=== PATIENT | male | born 1950 | race Caucasian/White ===

== ENCOUNTER 2020-04-06 10:04 | Outpatient (REF) | payer MEDICARE, SELFPAY | END 2020-04-06 10:05 | disposition home or self-care (01) | LOC: HO.LAB 10:04 | PROVIDERS: Visit Provider Internal Medicine | DX: Z20.822 Contact with and (suspected) exposure to COVID-19 (principal) | CPT/HCPCS: 36415; C9803; U0003 ==

== ENCOUNTER → 2020-05-09 12:54 | Outpatient (BNV) | payer MEDICARE, SELFPAY | PROVIDERS: Visit Provider Internal Medicine Medical Oncology | DX: C64.1 Malignant neoplasm of right kidney, except renal pelvis (principal) | CPT/HCPCS: 99213; 99214 ==

== ENCOUNTER 2020-06-03 13:28 | Outpatient (REF) | payer MEDICARE, SELFPAY ==
--- NOTE | ~2020-06-03 | CT_ITS ---
EXAMINATION: CT CHEST with IV contrast and CT abdomen with and without IV contrast CLINICAL INFORMATION: Renal cell cancer COMPARISON: Previous CT of the chest, abdomen and pelvis November 2019 and MRI of the abdomen May 2019 TECHNIQUE: Axial images through the chest following IV contrast and axial images of the abdomen with and without IV contrast and following oral contrast. Sagittal and coronal reconstructions on the technologist workstation were performed. Patient dose 109+3 4 2 mg/cm. This CT examination was performed using dose optimization techniques as appropriate, variously including the following: *Automated exposure control *Adjustment of mA and/or kV according to patient size (this includes techniques or standardized protocols for targeted exams where dose is matched to indication/reason for exam; i.e. extremities or head) *Use of iterative reconstruction technique FINDINGS: Chest: There are also pleural lobe blebs of the right lung apex. The lungs are otherwise clear. No pulmonary nodule is seen. There is coronary artery calcification. The mediastinum is otherwise normal. There is no pleural effusion or pleural thickening. No chest wall mass or enlarged axillary lymph nodes are seen. Abdomen and pelvis: The liver is low in attenuation suggestive of fatty infiltration. No focal liver lesion is seen. The gallbladder is normal. There is no biliary duct dilatation. The spleen is normal. The pancreas is normal. The adrenal glands are normal. The right kidney is been removed. The left kidney is normal appearing. Small and large bowel is unremarkable. The appendix is unremarkable. The stomach is unremarkable. No ascites or adenopathy is seen. No hernia is seen. There is evidence of atherosclerotic disease. There is mild dilatation of the distal abdominal aorta measuring 2.3 x 2.5 cm in AP and transverse dimension. There are old mild T3 and T4 vertebral body compression fractures severe T6 vertebral body compression fracture that appears unchanged. There are degenerative changes of the spine. CT/CT abdomen pelvis wo/w con IMPRESSION: No evidence of metastatic disease. Coronary artery calcification. Mild dilatation of the distal abdominal aorta. Stable old thoracic vertebral body compression fractures.
== END 2020-06-03 13:29 | disposition home or self-care (01) ==
LOC: HO.CT 13:28
PROVIDERS: Visit Provider Internal Medicine Medical Oncology
DX: C64.9 Malignant neoplasm of unspecified kidney, except renal pelvis (principal)
CPT/HCPCS: 71260; 74178; Q9967

== ENCOUNTER → 2020-06-14 09:49 | Outpatient (BNVA) | payer MEDICARE, SELFPAY | PROVIDERS: PCP Internal Medicine; Visit Provider Nurse Practitioner | DX: K59.04 Chronic idiopathic constipation (principal); K21.9 Gastro-esophageal reflux disease without esophagitis; R13.10 Dysphagia, unspecified; M18.0 Bilateral primary osteoarthritis of first carpometacarpal joints; Z79.899 Other long term (current) drug therapy; Z87.891 Personal history of nicotine dependence | CPT/HCPCS: Q3014 ==

== ENCOUNTER 2020-11-18 10:34 | Outpatient (REF) | payer MEDICARE, SELFPAY ==
--- NOTE | ~2020-11-18 | MR_ITS ---
MRI OF THE BRAIN WITH AND WITHOUT IV CONTRAST INDICATION: Renal cell carcinoma. Headaches. History of falls. COMPARISON: Brain MRI 07/29/2014. Head CT 05/22/2019. TECHNIQUE: Multiplanar multisequence MR imaging of the brain was obtained without and following the administration of 7.5 mL of Gadavist without complication. FINDINGS: There is no pathologic intracranial enhancement. 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 Progressive T2 signal changes within the supratentorial white matter, possibly advanced chronic microangiopathy but nonspecific. Chronic cortical/subcortical infarcts within the frontal lobes bilaterally. Progressive global cerebral volume loss. There is no hydrocephalus, extra-axial surface collection, or herniation. The major flow voids at the skull base are preserved. There is no acute infarct on diffusion-weighted imaging. There is no intracranial hemorrhage on the gradient recalled echo acquisition. Interval development of chronic siderosis along multiple parasagittal right frontoparietal gyral crests. The midline structures are normal. The cerebellar tonsils are normally positioned. The craniocervical junction is normal. Osseous marrow signal intensity is homogenous. The visualized soft tissues are unremarkable. Mild mucosal thickening within the maxillary sinuses bilaterally. Bilateral lens extractions. Small bilateral mastoid effusions. MR/MR head/brain wo/w con IMPRESSION: - No acute intracranial findings. No enhancing lesions. 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 Progressive T2 signal changes within the supratentorial white matter, possibly advanced chronic microangiopathy but nonspecific. Chronic cortical/subcortical infarcts within the frontal lobes bilaterally. Progressive global cerebral volume loss. - Interval development of chronic siderosis along multiple parasagittal right frontoparietal gyral crests.
== END 2020-11-18 10:35 | disposition home or self-care (01) ==
LOC: HO.MRI 10:34
PROVIDERS: Visit Provider Internal Medicine Medical Oncology
DX: R51.9 Headache, unspecified (principal)
CPT/HCPCS: 70553; A9585

== ENCOUNTER 2021-02-08 13:12 | Emergency (ER) | payer MEDICARE, SELFPAY ==
--- NOTE | ~2021-02-08 | CT_ITS ---
EXAMINATION: CT HEAD WITHOUT CONTRAST CLINICAL INFORMATION: Fall, trauma, pain COMPARISON: MR brain without and with contrast 11/18/2020, CT brain without and with contrast 05/22/2019 TECHNIQUE: Contiguous axial imaging was performed from the skull base to vertex without intravenous administration of contrast. Additional 2-D coronal and sagittal reformatted images are generated on the CT workstation and uploaded to PACS. This CT examination was performed using dose optimization techniques as appropriate, variously including the following: *Automated exposure control *Adjustment of mA and/or kV according to patient size (this includes techniques or standardized protocols for targeted exams where dose is matched to indication/reason for exam; i.e. extremities or head) *Use of iterative reconstruction technique DLP: 744 mGy-cm FINDINGS: There is no intracranial hemorrhage, hematoma, or extra-axial fluid collection. The ventricles are normal in size. There is no hydrocephalus, edema, or mass effect. There is accentuation of the cortical sulci and fissures and cisterns representing some atrophic changes. Again, periventricular white matter gliosis is present consistent with chronic small vessel ischemic changes. There are chronic infarcts again seen in the left and right cerebellar hemispheres. There is no visible acute territorial infarct or mass lesion. The calvarium appears intact. There is no pneumocephalus or orbital emphysema. There are no air-fluid levels in the visualized sinuses or middle ears or mastoids. CT/CT head/brain wo con IMPRESSION: No acute intracranial abnormality.
[2021-02-08 13:25] VITALS: BP 151/94; BP 165/110; PULSE 104; PULSE 110; RESP 18; TEMP 37.1; O2SAT 95; O2SAT 96; BMI 22.3
--- NOTE | 2021-02-08 13:39 | ECG_ITS ---
Test Reason : FALL Blood Pressure : / mmHG Vent. Rate : 099 BPM Atrial Rate : 099 BPM P-R Int : 200 ms QRS Dur : 082 ms QT Int : 344 ms P-R-T Axes : 038 021 070 degrees QTc Int : 441 ms Normal sinus rhythm Normal ECG When compared with ECG of 19-DEC-2016 21:40, Vent. rate has increased BY 35 BPM Referred By: Adonis Saini Electronically Signed By:SHARDA OLIVARES
--- NOTE | 2021-02-08 13:41 | ED.FALL ---
HPI - Fall General Chief Complaint: Fall Stated Complaint: WEAKNESS W/FALL,HEAD LAC EYEBROW,+THINNERS/CONTROL Time Seen by Provider: 02/08/21 13:38 Source: patient, EMS and old records reviewed Mode of arrival: ambulatory Limitations: no limitations History of Present Illness HPI Narrative: 70-year-old male came in by ambulance for evaluation of a mechanical fall. Patient was walking to his apartment said his legs usually keep out and feels weak, causing him to fall, patient admitted to drinking 3 beers today, patient fell down landed on both knees and forehead causing laceration of the left eyebrow. no LOC before or after of the fall. Patient is taking Eliquis for noncardiac reason patient is aware and old records do not reflect the reason. Related Data Home Medications Medication Instructions Recorded Confirmed apixaban 5 mg tablet (Eliquis) 1 tab PO BID 05/09/20 11/08/20 calcitonin (salmon) 200 200 unit INTRANASAL DAILY 05/09/20 11/08/20 unit/actuation nasal spray cholecalciferol (vitamin D3) 25 1 cap PO DAILY 05/09/20 11/08/20 mcg (1,000 unit) capsule (Vitamin D3) meclizine 12.5 mg tablet 1 tab PO DAILY 05/09/20 11/08/20 omeprazole 20 mg capsule,delayed 1 cap PO DAILY 05/09/20 11/08/20 release rosuvastatin 20 mg tablet 1 tab PO DAILY 05/09/20 11/08/20 alendronate 70 mg tablet (Fosamax) 70 mg PO QWEEK 01/18/21 ciclopirox 8 % topical solution ml TOPICAL 01/18/21 diltiazem HCl 180 mg 180 mg PO DAILY 01/18/21 capsule,extended release 24 hr ipratropium 20 mcg-albuterol 100 1 puff INHALATION Q4H PRN 01/18/21 mcg/actuation mist for inhalation (Combivent Respimat) melatonin 5 mg tablet 5 mg PO BEDTIME PRN 01/18/21 tiotropium bromide 18 mcg capsule 1 cap INHALATION DAILY 01/18/21 with inhalation device (Spiriva with HandiHaler) Previous Rx's Medication Instructions Recorded sennosides 8.6 mg capsule (senna) 17.2 mg PO BEDTIME 30 Days #60 cap 11/11/20 Allergies Allergy/AdvReac Type Severity Reaction Status Date / Time aspirin Allergy Unknown upset Verified 01/18/21 14:47 stomach Review of Systems Review of Systems: All other systems are reviewed and are negative Constitutional: Reports as per HPI and Reports no additional constitutional complaints Eyes: Reports as per HPI and Reports no additional eye complaints Reports system reviewed and no additional complaints, except as documented Cardiovascular: Reports as per HPI and Reports no additional cardiovascular complaints Respiratory: Reports as per HPI and Reports no additional respiratory complaints Gastrointestinal: Reports as per HPI and Reports no additional gastrointestinal complaints Genitourinary: Reports no additional female genitourinary complaints Musculoskeletal: Reports no additional musculoskeletal complaints Skin/Breast: Reports system reviewed and no additional complaints, except as docu Psychiatric: Reports no additional psychiatric complaints Endocrine: Reports no additional endocrine complaints Hematologic/Lymphatic: Reports no additional hematologic/lymphatic complaints Allergic/Immunologic: Reports no additional allergic/immunologic complaints Reports system reviewed and no additional complaints, except as documented and Reports Abnormal speech present PMFSH Past Medical History Medical History Chronic idiopathic constipation GERD (gastroesophageal reflux disease) Renal cell carcinoma Surgical History History of esophagogastroduodenoscopy (EGD) Hx of colonoscopy Hx of kidney removal Family History Family History Father Hx of back injury Mother History of asthma Brother History of memory loss Social History Social History Housing: Apartment Alcohol intake: current Alcohol intake frequency: holidays/special occasions only Alcohol type: beer Patient Tobacco Use Status: Former Tobacco user e-Cigarette/Vaping Use: Never Used Second Hand Smoke Exposure: No Advance Directives: Yes Advance Directives Information Provided: No Advance Directives on File: No service: No Current occupational status: retired Cognitive needs: No Hearing needs: No Vision needs: No Physical Exam Vital Signs: Vital Signs: Last Vital Signs Temp 98.8 F 02/08/21 13:25 Pulse 98 02/08/21 15:03 Resp 18 02/08/21 15:03 BP 146/93 H 02/08/21 15:03 Pulse Ox 95 02/08/21 15:03 BMI result Body Mass Index 22.3 vital signs have been reviewed as appeared to be correct. Blood pressure elevated. Heart rate normal. Respiration rate normal. Temperature normal. Oxygen saturation normal. Appearance: Alert. Oriented X3. No acute distress. GCS of 15 Head: Normal external exam. Normocephalic. Atraumatic. No Weathers signs noted. No raccoon eyes noted Eyes: PERRLA. EOMI. Conjunctiva and sclera normal. Eyelids normal. 3 cm ENT: TM's Normal. Pharynx normal. Uvula midline. Moist mucous membranes. No trismus noted. No drooling noted. No muffled voice noted. Neck: Normal inspection. Neck supple. FROM. No adenopathy. Thyroid Normal. No meningeal signs. No neck mass noted. CVS: Normal heart rate and rhythm. Heart sound normal. No murmurs noted. Pulses normal throughout. Respiratory: No respiratory distress. Painless inspiration. Breath sounds normal. No wheezes/rales/rhonchi noted. Chest nontender. No accessory muscle usage noted or decreased air movement noted. Abdomen: Soft and nontender. Bowel sounds normal in all 4 quadrants. No distention noted. No organomegaly noted. No visible injury noted. Back: No CVA tenderness. Full range of motion noted. Skin: Skin warm and dry. Normal skin color. Normal skin turgor. No rashes/lesions/lacerations noted. Extremities: No lower extremity edema. Extremities exhibit normal range of motion. Extremities nontender. Neuro: Oriented X 3. GCS of 15 Cranial nerve exam: II-XII are grossly intact No motor deficit. No sensory deficit. Reflexes normal. Course Course Course Narrative: assessment and plan. 70-year-old male sustained a mechanical fall on [facility], patient has normal neuro exam, GCS of 15, normal CT of the head, please refer to procedure note for laceration repair. Patient drinks 3 beers early today for patients over walking in steady gait. Procedures Laceration Laceration 1: Site: face ( Left eyebrow) Side (If applicable): left Description: linear Depth: simple, single layer Pre-repair: wound explored and irrigated extensively Skin layer closed with: other ( Dermabond) MDM - Fall Lab Data Attestation: I reviewed the patient's lab results. Result diagrams: 02/08/21 13:56 Labs: Lab Results 02/08/21 02/08/21 Range/Units 13:56 13:56 Sodium 131 L (135-145) mmol/L Potassium 4.4 (3.3-5.1) mmol/L Chloride 102 (96-108) mmol/L Carbon Dioxide 14 L (22-29) mmol/L Anion Gap 19 (12-20) BUN 23 H (9-16) mg/dL Creatinine 1.39 (0.5-1.4) mg/dL Estim Creat Clear Calc 52.2 Estimated GFR 51 Random Glucose 99 (60-115) mg/dL Calcium 9.3 (8.4-10.2) mg/dL Total Bilirubin 0.5 (0.0-1.0) mg/dL Direct Bilirubin < 0.2 (0.0-0.5) mg/dL AST 30 D (5-37) U/L ALT 21 (0-40) U/L Alkaline Phosphatase 48 (39-117) U/L Troponin I High Sens < 3.5 (<3.5-35.0) ng/L Total Protein 7.3 (6.5-8.0) g/dL Albumin 3.9 (3.5-5.0) g/dL Lipase 19 (8-78) U/L Imaging Data CT scan - head: Radiologist's impression: no acute pathology. ECG Data Attestation: I personally reviewed and interpreted this ECG as follows: Interpretation: Normal sinus rhythm at 99 beats per minute, normal intervals, no ST-T changes. Discharge Plan Discharge Clinical Impression: Facial laceration, Fall Patient Disposition: Home, Self-Care Instructions: Skin Adhesive Care (ED) Prescriptions: No Action senna 8.6 mg capsule 17.2 mg PO BEDTIME 30 Days Qty: 60 RF: 3 meclizine 12.5 mg tablet 1 tab PO DAILY RF: 0 calcitonin (salmon) 200 unit/actuation spray,non-aerosol 200 unit intranasal DAILY RF: 0 omeprazole 20 mg capsule,delayed release(DR/EC) 1 cap PO DAILY RF: 0 cholecalciferol (vitamin D3) [Vitamin D3] 25 mcg (1,000 unit) capsule 1 cap PO DAILY RF: 0 rosuvastatin 20 mg tablet 1 tab PO DAILY RF: 0 Eliquis 5 mg tablet 1 tab PO BID RF: 0 Combivent Respimat 20-100 mcg/actuation mist 1 puff inhalation Q4H PRNRF: 0 diltiazem HCl 180 mg capsule,extended release 24hr 180 mg PO DAILY RF: 0 alendronate [Fosamax] 70 mg tablet 70 mg PO QWEEK RF: 0 ciclopirox 8 % solution topical RF: 0 melatonin 5 mg tablet 5 mg PO BEDTIME PRNRF: 0 Spiriva with HandiHaler 18 mcg capsule, w/inhalation device 1 cap inhalation DAILY RF: 0 Referrals: José Vaughn MD [Primary Care Provider] - 2 days
[2021-02-08 14:24] LABS: Alanine Aminotransferase 21 U/L (0-40); Albumin Level 3.9 g/dL (3.5-5.0); Alkaline Phosphatase 48 U/L (39-117); Anion Gap 19 (12-20); Aspartate Amino Transferase 30 U/L (5-37); Bilirubin Direct < 0.2 mg/dL (0.0-0.5); Bilirubin Total 0.5 mg/dL (0.0-1.0); Blood Urea Nitrogen 23 mg/dL (9-16); Calcium 9.3 mg/dL (8.4-10.2); Carbon Dioxide 14 mmol/L (22-29); Chloride 102 mmol/L (96-108); Creatinine Clr Calc Pharmacy 52.2; Estimated Glomerular Filt Rate 51; Glucose Random 99 mg/dL (60-115); Lipase 19 U/L (8-78); Potassium 4.4 mmol/L (3.3-5.1); Sodium 131 mmol/L (135-145); Total Protein 7.3 g/dL (6.5-8.0); Troponin-I High Sensitivity < 3.5 ng/L (<3.5-35.0)
[2021-02-08 15:03] VITALS: BP 146/93; PULSE 98; RESP 18; O2SAT 95
[2021-02-08] MEDS: Diphth,Pertus(ACell),Tet Adult 0.5 ML SYRINGE IM (15:18)
== END 2021-02-08 16:14 | disposition home or self-care (01) ==
PROVIDERS: Emergency Provider Emergency Medicine; PCP Internal Medicine
DX: S01.112A Laceration without foreign body of left eyelid and periocular area, initial encounter (principal); G44.309 Post-traumatic headache, unspecified, not intractable; H57.12 Ocular pain, left eye; W01.0XXA Fall on same level from slipping, tripping and stumbling without subsequent striking against object, initial encounter; Y93.9 Activity, unspecified; Y92.9 Unspecified place or not applicable; Y99.9 Unspecified external cause status; Z79.899 Other long term (current) drug therapy; Z79.01 Long term (current) use of anticoagulants
CPT/HCPCS: 12011; 36415; 70450; 80048; 80076; 83690; 84484; 90471; 90715; 93005; 99284

== ENCOUNTER 2021-05-03 17:45 | Emergency (ER) | payer MEDICARE, SELFPAY ==
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
[2021-05-03 18:23] VITALS: BMI 20.3
[2021-05-03 19:30] LABS: MANUAL DIFF FLAG NO
[2021-05-03 19:32] LABS: Basophils Percent Auto 0.7 % (0-2); Eosinophils Absolute Auto 0.1 X10*3/uL (0.0-0.4); Eosinophils Percent Auto 2.4 % (0-4); Hematocrit 35.5 % (42.0-52.0); Hemoglobin 12.2 g/dl (14.0-18.0); Imm Gran Abs Auto 0.03 X10*3/uL (0.00-0.03); Imm Gran Pct Auto 0.6 % (0.0-0.4); Lymphocytes Absolute Auto 1.3 X10*3/uL (1.2-4.9); Lymphocytes Percent Auto 23.9 % (20-40); Mean Corpuscular HGB Conc 34.4 g/dl (31.0-36.0); Mean Corpuscular Hemoglobin 31.1 pg (27.0-33.0); Mean Corpuscular Volume 90.6 fL (80.0-98.0); Mean Platelet Volume 9.2 fL (9.4-12.4); Monocytes Absolute Auto 0.5 X10*3/uL (0.1-1.2); Monocytes Percent Auto 9.9 % (2-11); Neutrophils Absolute Auto 3.4 x10*3/uL (2.0-8.3); Neutrophils Percent Auto 62.5 % (45-73); Platelet Count 275 X10*3/uL (160-400); Red Blood Count 3.92 X10*6/uL (4.60-5.80); Red Cell Distribution Width 13.2 % (11.0-16.0); White Blood Count 5.5 X10*3/uL (4.8-10.8)
[2021-05-03 19:38] LABS: INTERNATIONAL NORM RATIO 1.3 (0.9-1.1); Prothrombin Time 15.1 SEC (9.9-13.0)
[2021-05-03 19:41] LABS: Partial Thromboplastin Time 29.8 SEC (24.1-38.0)
[2021-05-03 19:44] VITALS: BP 149/82; PULSE 80; RESP 18; TEMP 36.6; O2SAT 94
[2021-05-03 19:46] LABS: Alanine Aminotransferase 19 U/L (0-40); Alkaline Phosphatase 52 U/L (39-117); Anion Gap 13 (12-20); Aspartate Amino Transferase 23 U/L (5-37); Bilirubin Total 0.5 mg/dL (0.0-1.0); Blood Urea Nitrogen 30 mg/dL (9-16); Calcium 9.2 mg/dL (8.4-10.2); Carbon Dioxide 23 mmol/L (22-29); Chloride 104 mmol/L (96-108); Creatinine Clr Calc Pharmacy 45.6; Estimated Glomerular Filt Rate 49; Glucose Random 130 mg/dL (60-115); Potassium 4.3 mmol/L (3.3-5.1); Sodium 136 mmol/L (135-145); Total Protein 6.9 g/dL (6.5-8.0)
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
[2021-05-03] MEDS: iohexoL 350 MG/ML 100 ML INFUS..BTL IV (20:15)
[2021-05-03 23:27] LABS: COVID-19 Test Negative (Negative)
== END 2021-05-04 00:03 | disposition short-term general hospital (02) ==
PROVIDERS: Physician Assistant Medical; Emergency Provider Emergency Medicine Emergency Medical Services
DX: S12.601A Unspecified nondisplaced fracture of seventh cervical vertebra, initial encounter for closed fracture (principal); S00.01XA Abrasion of scalp, initial encounter; V03.10XA Pedestrian on foot injured in collision with car, pick-up truck or van in traffic accident, initial encounter; M25.551 Pain in right hip; Z20.822 Contact with and (suspected) exposure to COVID-19; Z90.5 Acquired absence of kidney; Z79.01 Long term (current) use of anticoagulants; Z86.73 Personal history of transient ischemic attack (TIA), and cerebral infarction without residual deficits; Z85.53 Personal history of malignant neoplasm of renal pelvis; Z87.891 Personal history of nicotine dependence; Y93.01 Activity, walking, marching and hiking; Y92.414 Local residential or business street as the place of occurrence of the external cause; Y99.9 Unspecified external cause status
CPT/HCPCS: 36415; 70450; 71260; 72125; 74177; 80053; 85025; 85610; 85730; 87635; 99285; Q9967

== ENCOUNTER 2021-11-16 08:53 | Outpatient (REF) | payer MEDICARE, SELFPAY ==
--- NOTE | ~2021-11-16 | MM_ITS ---
EXAMINATION: BONE DENSITOMETRY CLINICAL INDICATION: Osteoporosis. COMPARISON: This is the patient's baseline examination. TECHNIQUE: Using a [employer] DXA System (software version: 13.1) manufactured by [employer], dual-energy x-ray absorptiometry was performed of the lumbar spine and left hip. The images are of good technical quality. Summary results are attached. FINDINGS: AP SPINE L1-L4: BMD 1.080 g/cm2, Z-score -0.3, T-score -1.2, osteopenia. LEFT FEMUR, NECK: BMD 1.105 g/cm2, Z-score 1.7, T-score 0.3, normal. LEFT FEMUR, TOTAL: BMD 1.109 g/cm2, Z-score 1.0, T-score 0.1, normal. IDENTIFIED RISK FACTORS: Height loss, kidney disease, anticonvulsants. HISTORY OF FRACTURE: Heel. MEDICATIONS: Vitamin D. MM/XR DEXA axial skeleton IMPRESSION: 1. DIAGNOSIS: Osteopenia based on the lowest T-score value of -1.2 in the lumbar spine applying World Health Organization criteria. 2. 10-YEAR FRACTURE RISK PREDICTION, FRAX: Major osteoporotic fracture (clinical spine, forearm, hip or shoulder) 6.5%. Hip fracture 0.5%. 3. Treatment Recommendations: NOF guidelines recommend consideration for treatment in postmenopausal women and men age 50 and older presenting with the following: -A hip or vertebral (clinical or morphometric) fracture. -T-score less than or equal to -2.5 at the femoral neck or spine after appropriate evaluation to exclude secondary causes. -Low bone mass at the hip or spine and a 10-year fracture probability by FRAX of greater than or equal to 3% for hip fracture or greater than or equal to 20% for major osteoporotic fracture based on the [place] adapted WHO algorithm. 4. Other Recommendations: All treatment decisions require clinical judgment and consideration of individual patient factors, including patient preferences, comorbidities, previous drug use, risk factors not captured in the FRAX model (e.g. frailty, falls, vitamin D deficiency, increased bone turnover, interval significant decline in bone density) and possible under or overestimation of fracture risk by FRAX. Additional medical evaluation for secondary cause of low bone mineral density may be appropriate. FUTURE SCAN RECOMMENDATION: People with diagnosed cases of osteoporosis or at high risk for fracture should have regular bone mineral density tests. For patients eligible for Medicare, routine testing is allowed once every 2 years. The testing frequency can be increased to one year for patients who have rapidly progressing disease, those who are receiving or discontinuing medical therapy to restore bone mass, or have additional risk factors.
== END 2021-11-16 08:54 | disposition home or self-care (01) ==
LOC: HO.MAMMO 08:53
PROVIDERS: PCP Internal Medicine; Visit Provider Internal Medicine Medical Oncology
DX: Z13.820 Encounter for screening for osteoporosis (principal); M81.0 Age-related osteoporosis without current pathological fracture; M85.80 Other specified disorders of bone density and structure, unspecified site; Z79.899 Other long term (current) drug therapy; N18.9 Chronic kidney disease, unspecified
CPT/HCPCS: 77080

== ENCOUNTER 2022-05-16 09:34 | Outpatient (REF) | payer MEDICARE, SELFPAY ==
[2022-05-16 10:22] LABS: Hematocrit 40.5 % (42.0-52.0); Mean Corpuscular HGB Conc 34.6 g/dl (31.0-36.0); Mean Corpuscular Hemoglobin 30.5 pg (27.0-33.0); Mean Corpuscular Volume 88.2 fL (80.0-98.0); Mean Platelet Volume 9.4 fL (9.4-12.4); Platelet Count 263 X10*3/uL (160-400); Red Blood Count 4.59 X10*6/uL (4.60-5.80); Red Cell Distribution Width 13.4 % (11.0-16.0); White Blood Count 5.5 X10*3/uL (4.8-10.8)
[2022-05-16 10:32] LABS: Estimated Average Glucose 128 mg/dL; Hemoglobin A1c % 6.1 %
[2022-05-16 10:51] LABS: Alanine Aminotransferase 20 U/L (0-40); Albumin Level 4.3 g/dL (3.5-5.0); Alkaline Phosphatase 47 U/L (39-117); Anion Gap 13 (12-20); Aspartate Amino Transferase 23 U/L (5-37); Bilirubin Direct 0.3 mg/dL (0.0-0.5); Bilirubin Total 1.1 mg/dL (0.0-1.0); Blood Urea Nitrogen 25 mg/dL (9-16); Calcium 9.4 mg/dL (8.4-10.2); Carbon Dioxide 22 mmol/L (22-29); Chloride 104 mmol/L (96-108); Cholesterol 140 mg/dL; Estimated Glomerular Filt Rate 47; Glucose Random 90 mg/dL (60-115); HDL Cholesterol 49 mg/dL; LDL Cholesterol Calculated 78 mg/dl; Potassium 4.3 mmol/L (3.3-5.1); Sodium 135 mmol/L (135-145); Total Protein 7.2 g/dL (6.5-8.0); Triglycerides 69 mg/dL
[2022-05-16 11:07] LABS: Thyroid Stimulating Hormone 1.58 uIU/mL (0.32-4.0)
== END 2022-05-16 09:35 | disposition home or self-care (01) ==
LOC: HO.LAB 09:34
PROVIDERS: PCP Internal Medicine; Visit Provider Internal Medicine
DX: R13.10 Dysphagia, unspecified (principal); C64.9 Malignant neoplasm of unspecified kidney, except renal pelvis; E11.9 Type 2 diabetes mellitus without complications
CPT/HCPCS: 36415; 80048; 80061; 80076; 83036; 84443; 85027

== ENCOUNTER 2022-07-12 07:42 | Outpatient (REF) | payer MEDICARE, SELFPAY ==
[2022-07-12 08:50] LABS: Alanine Aminotransferase 20 U/L (0-40); Albumin Level 4.4 g/dL (3.5-5.0); Alkaline Phosphatase 52 U/L (39-117); Anion Gap 13 (12-20); Aspartate Amino Transferase 23 U/L (5-37); Bilirubin Total 0.8 mg/dL (0.0-1.0); Blood Urea Nitrogen 29 mg/dL (9-16); Calcium 8.8 mg/dL (8.4-10.2); Carbon Dioxide 26 mmol/L (22-29); Chloride 99 mmol/L (96-108); Estimated Glomerular Filt Rate 40; Glucose Random 74 mg/dL (60-115); Potassium 4.1 mmol/L (3.3-5.1); Sodium 134 mmol/L (135-145); Total Protein 7.4 g/dL (6.5-8.0)
== END 2022-07-12 07:43 | disposition home or self-care (01) ==
LOC: HO.LAB 07:42
PROVIDERS: PCP Internal Medicine; Visit Provider Internal Medicine Medical Oncology
DX: C64.9 Malignant neoplasm of unspecified kidney, except renal pelvis (principal)
CPT/HCPCS: 36415; 80053

== ENCOUNTER 2022-07-31 10:36 | Outpatient (REF) | payer MEDICARE, SELFPAY ==
--- NOTE | ~2022-07-31 | CT_ITS ---
EXAMINATION: CT HEAD WITH CONTRAST CLINICAL INFORMATION: Dizziness, unsteady gait, leg weakness. Renal cell carcinoma. COMPARISON: Head CT 05/03/2021. TECHNIQUE: Contiguous axial imaging was performed from the skull base to vertex following the administration of 100 mL of Omnipaque [address] examination was performed using dose optimization techniques as appropriate, variously including the following: *Automated exposure control *Adjustment of mA and/or kV according to patient size (this includes techniques or standardized protocols for targeted exams where dose is matched to indication/reason for exam; i.e. extremities or head) *Use of iterative reconstruction technique DLP: 1146 mGy-cm FINDINGS: No enhancing lesions are seen. There is no evidence of definite vasogenic edema. No hemorrhage, mass effect, or extra-axial collection is seen. There is chronic hypoattenuation within the cerebral white matter, typical of chronic microangiopathy. Chronic lacunar infarcts are again seen within the bilateral cerebellar hemispheres the ventricles are normal in size without hydrocephalus. Mild degree of brain parenchymal volume loss is noted. The dural venous sinuses appear normally opacified. The calvarium is intact. No destructive osseous changes are seen. CT/CT head/brain w IV con IMPRESSION: No acute intracranial abnormality identified. No CT evidence of intracranial metastatic disease. Chronic lacunar infarcts are seen in the bilateral cerebellar hemispheres. Background changes of chronic microangiopathy.
--- NOTE | ~2022-07-31 | CT_ITS ---
EXAMINATION: CT ABDOMEN AND PELVIS WITH CONTRAST CLINICAL INFORMATION: Followup renal carcinoma. COMPARISON: CT abdomen and pelvis 05/03/2021 TECHNIQUE: Multidetector volumetric images were obtained from the superior aspect of the liver through the pubic symphysis following administration 85 mL of Omnipaque 350 intravenous contrast. Sagittal and coronal reformatted images were obtained on the technologist's workstation. Oral contrast: No This CT examination was performed using dose optimization techniques as appropriate, variously including the following: *Automated exposure control *Adjustment of mA and/or kV according to patient size (this includes techniques or standardized protocols for targeted exams where dose is matched to indication/reason for exam; i.e. extremities or head) *Use of iterative reconstruction technique DLP: 1146 mGy-cm FINDINGS: LUNG BASES: The lung bases are clear. There is a small hiatal hernia. LIVER, GALLBLADDER, AND BILIARY TREE: The liver is normal in size, shape, and attenuation. No focal hepatic lesion or biliary ductal dilatation is present. The gallbladder is unremarkable with no evidence of radiopaque gallstones, gallbladder wall thickening, or obvious pericholecystic inflammatory changes. PANCREAS: Unremarkable. SPLEEN: Unremarkable. ADRENAL GLANDS: Bilateral adrenal glands are unremarkable. KIDNEYS AND URETERS: The right kidney has been surgically removed. There is normal left renal cortical nephrogram which appears normal in size, shape and position. No enhancing lesion or cyst visualized. No radiopaque calculi or hydronephrosis is seen. BLADDER: The bladder is distended and appears unremarkable. GASTROINTESTINAL TRACT: Oral contrast opacified small bowel loops are normal. There is scattered stool and gas seen in the colon without any significant distention. No free fluid or free air seen. The stomach is non-distended. ABDOMINAL WALL: No significant hernia is appreciated. LYMPH NODES: Normal. VASCULAR: There are mild atherosclerotic changes of the abdominal aorta with mild aneurysmal dilatation of mid segment measuring 2.6 x 2.7 cm on axial image 07/31/2022. PELVIC VISCERA: Unremarkable. OSSEOUS STRUCTURES: No aggressive lytic or sclerotic process is seen. CT/CT abdomen pelvis w IV con IMPRESSION: Right nephrectomy. The left kidney is unremarkable. Mild constipation. Fleischner guidelines were followed.
[2022-07-31] MEDS: iohexoL 350 MG/ML 100 ML INFUS..BTL IV (14:41)
== END 2022-07-31 10:37 | disposition home or self-care (01) ==
LOC: HO.CT 10:36
PROVIDERS: PCP Internal Medicine; Visit Provider Internal Medicine Medical Oncology
DX: C64.9 Malignant neoplasm of unspecified kidney, except renal pelvis (principal); R42 Dizziness and giddiness
CPT/HCPCS: 70460; 74177; Q9967

== ENCOUNTER 2022-11-22 08:54 | Outpatient (AMB) | payer MEDICARE, SELFPAY ==
--- NOTE | 2022-11-22 08:57 | A.OFFPC_ITS ---
Vital Signs 11/22/22 08:59 Height 5 ft 11 in Weight 147 lb 8 oz BMI 20.6 BP 110/70 Blood Pressure Location Lt brachial Position Sitting Pulse 88 Pulse Source Pulse Oximeter Pulse Oximetry (%) 97 Oxygen Delivery Method Room Air Intake Visit Reasons: 6m F/U Intake Note: Patient is here to follow up on GERD, Osteoporosis, HTN. 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 Accompanied by: Self / Same As Patient Allergies aspirin Adverse Reaction (Unknown, Verified 11/22/22 08:57) upset stomach Medication List - Last Reconciled 11/22/22 by José Vaughn MD amitriptyline 25 mg PO BEDTIME apixaban (Eliquis) 5 mg PO BID calcitonin (salmon) 200 unit/actuation 200 units intranasal DAILY cholecalciferol (vitamin D3) (Vitamin D3) 25 mcg PO DAILY diltiazem HCl 180 mg PO DAILY hydrochlorothiazide 25 mg PO DAILY ipratropium-albuterol 20-100 mcg/actuation (Combivent Respimat) 1 puff inhalation Q4H PRN omeprazole 20 mg PO DAILY rosuvastatin 20 mg PO DAILY sennosides (senna) 17.2 mg (2 x 8.6 mg) PO BEDTIME 30 days tamsulosin (Flomax) 0.4 mg PO DAILY Tobacco use date assessed: 11/22/22 Fall risk assessment: No Falls in past year Last assessed Fall Risk: 11/22/22 Dental Screening Dental Screen Date: 11/22/22 Did you have a dental visit in the last 12 months?: No Did you have a dental problem in the last 6 months where you did not have access to dental care?: No Was dental information given to patient?: No HPI 6m F/U HPI Details 72-year-old male presents to the office to discuss his chronic medical conditions. The the renal cancer is stable and currently he is not on any chemotherapy drugs. He is able to function and do activities of daily living. Requests a refill on his medications. [facility] Medical History Essential hypertension CVA (cerebral vascular accident) Chronic idiopathic constipation GERD (gastroesophageal reflux disease) Renal cell carcinoma Surgical History Hx of colonoscopy History of esophagogastroduodenoscopy (EGD) Hx of kidney removal Family History Father Hx of back injury Mother History of asthma Brother History of memory loss Social History Household Members: Friend(s) Housing: Apartment Are you a primary progressive care unit registered nurse to a significant other at home: No Do you presently have visiting nurse or other home services: No Alcohol intake: current Alcohol intake frequency: holidays/special occasions only Alcohol type: beer Patient Tobacco Use Status: Former Tobacco user Tobacco use type: Cigarette e-Cigarette/Vaping Use: Never Used Second Hand Smoke Exposure: No service: No Current occupational status: retired Cognitive needs: No Hearing needs: No Vision needs: Yes Questionnaire Thrive Questionnaire Date Thrive assessed: 05/16/22 JANNA-7 AMB Questionnaire JANNA-7 Date JANNA - 7 assessed: 05/16/22 Source: Developed by Drs. Zev Alvares, Dianna Guardado, Juan Aceves and colleagues, with an educational joyce from [employer]. Physical exam (Primary Care) Vital Signs: Last Vital Signs Pulse 88 11/22/22 08:59 BP 110/70 11/22/22 08:59 Pulse Ox 97 11/22/22 08:59 Oxygen Delivery Method Room Air 11/22/22 08:59 BMI result Body Mass Index 20.6 Tobacco/Smoking Status: Tobacco use Status Tobacco use date assessed 11/22/22 11/22/22 09:05 Patient Tobacco Use Status Former Tobacco user 11/22/22 09:05 Tobacco use type Cigarette 11/22/22 09:05 e-Cigarette/Vaping Use Never Used 11/22/22 09:05 Thrive Assessment: Date of Thrive Assessment Date Thrive assessed 05/16/22 11/22/22 09:05 Const General: cooperative and healthy appearing Nutritional Appearance: well nourished Orientation/consciousness: patient oriented x3 Limitations: no limitations HENMT Head: Yes normal to inspection Eyes General: appearance normal, both eyes and all related structures Neck Neck: Yes normal visual inspection Chest Chest palpation & inspection: normal palpation of entire chest wall Resp Effort & Inspection: normal respiratory effort Neuro General: patient oriented x3 Assessment and Plan Assessment & Plan (1) Essential hypertension: Code(s): I10 - Essential (primary) hypertension Plan: Blood work reviewed. Continue medications at same dosage. (2) Renal cell carcinoma: Code(s): C64.9 - Malignant neoplasm of unspecified kidney, except renal pelvis Plan: Condition is stable. Continue medications at same dosage. Medications: Refilled tamsulosin (Flomax) 0.4 mg PO DAILY 90 caps 1RF rosuvastatin 20 mg PO DAILY 90 tabs 1RF diltiazem HCl 180 mg PO DAILY 90 caps 1RF apixaban (Eliquis) 5 mg PO BID 180 tabs 1RF sennosides (senna) 17.2 mg (2 x 8.6 mg) PO BEDTIME 60 caps 3RF constipation 30 days omeprazole 20 mg PO DAILY 90 caps 1RF hydrochlorothiazide 25 mg PO DAILY 90 tabs 0RF cholecalciferol (vitamin D3) (Vitamin D3) 25 mcg PO DAILY 90 caps 1RF Coding Level of Care Code Est Pt Level 4 (11805) Diagnoses Essential hypertension I10 Renal cell carcinoma C64.9
[2022-11-22 08:59] VITALS: BP 110/70; PULSE 88; O2SAT 97; BMI 20.6
== END 2022-11-22 09:34 | disposition home or self-care (01) ==
PROVIDERS: PCP Internal Medicine; Visit Provider Internal Medicine
DX: I10 Essential (primary) hypertension (principal); C64.9 Malignant neoplasm of unspecified kidney, except renal pelvis
CPT/HCPCS: 99214

== ENCOUNTER 2023-06-06 09:16 | Emergency (ER) | payer MEDICARE, SELFPAY ==
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
[2023-06-06 09:20] VITALS: BP 166/85; PULSE 91; RESP 18; TEMP 36.7; O2SAT 96; BMI 19.6
[2023-06-06 09:53] LABS: MANUAL DIFF FLAG NO
[2023-06-06 09:54] LABS: Basophils Absolute Auto 0.1 X10*3/uL (0.0-0.2); Eosinophils Absolute Auto 0.1 X10*3/uL (0.0-0.4); Eosinophils Percent Auto 1.2 % (0-4); Hematocrit 38.7 % (42.0-52.0); Hemoglobin 13.4 g/dl (14.0-18.0); Imm Gran Abs Auto 0.01 X10*3/uL (0.00-0.03); Imm Gran Pct Auto 0.2 % (0.0-0.4); Lymphocytes Absolute Auto 1.5 X10*3/uL (1.2-4.9); Lymphocytes Percent Auto 28.7 % (20-40); Mean Corpuscular HGB Conc 34.6 g/dl (31.0-36.0); Mean Corpuscular Hemoglobin 30.5 pg (27.0-33.0); Mean Platelet Volume 8.8 fL (9.4-12.4); Monocytes Absolute Auto 0.5 X10*3/uL (0.1-1.2); Monocytes Percent Auto 10.1 % (2-11); Neutrophils Percent Auto 58.8 % (45-73); Platelet Count 249 X10*3/uL (160-400); Red Cell Distribution Width 13.2 % (11.0-16.0); White Blood Count 5.1 X10*3/uL (4.8-10.8)
[2023-06-06 10:08] LABS: Alanine Aminotransferase 13 U/L (0-40); Albumin Level 4.3 g/dL (3.5-5.0); Alkaline Phosphatase 47 U/L (39-117); Anion Gap 13 (12-20); Aspartate Amino Transferase 21 U/L (5-37); Bilirubin Total 0.8 mg/dL (0.0-1.0); Blood Urea Nitrogen 42 mg/dL (9-16); Calcium 9.7 mg/dL (8.4-10.2); Carbon Dioxide 24 mmol/L (22-29); Chloride 105 mmol/L (96-108); Creatinine Clr Calc Pharmacy 35.8; Estimated Glomerular Filt Rate 43; Glucose Random 69 mg/dL (60-115); Potassium 3.8 mmol/L (3.3-5.1); Sodium 138 mmol/L (135-145); Total Protein 7.4 g/dL (6.5-8.0)
[2023-06-06 12:22] VITALS: BP 150/87; PULSE 78; RESP 16; TEMP 36.9; O2SAT 97
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
--- NOTE | 2023-06-06 20:05 | ECG_ITS ---
Test Reason : WEAKNESS Blood Pressure : / mmHG Vent. Rate : 070 BPM Atrial Rate : 070 BPM P-R Int : 198 ms QRS Dur : 080 ms QT Int : 402 ms P-R-T Axes : 060 044 072 degrees QTc Int : 434 ms Normal sinus rhythm Normal ECG When compared with ECG of 08-FEB-2021 13:39, T wave amplitude has increased in Anterior leads Referred By: Alli St Electronically Signed By:Carol Montilla
[2023-06-06] MEDS: 0.9 % Sodium Chloride 1,000 ML 999 ML IV (20:08)
[2023-06-06 20:20] VITALS: BP 150/84; RESP 16; TEMP 36.4; O2SAT 100
[2023-06-06 22:35] VITALS: BP 138/87; PULSE 68; RESP 16; O2SAT 96
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
[2023-06-07] MEDS: Lactated Ringers 1,000 ML 999 ML IV (01:18)
[2023-06-07 01:57] VITALS: BP 131/94; PULSE 82; RESP 16; TEMP 36.9; O2SAT 97
[2023-06-07 05:40] VITALS: BP 168/97; PULSE 82; RESP 16; TEMP 36.9; O2SAT 96
--- NOTE | 2023-06-07 08:28 | MHC.CM.ED ---
Addendum entered by Bia Wood 06/07/23 09:54: Found out from [facility] that patient has [facility] for insurance. No acute rehab bed offered at this time. Referral broadcasted in [facility] to all nursing home facilities that are contracted with [facility]. [facility], [facility], [facility] [address], [facility], [facility], [facility], [facility] and [facility] are able to offer a bed. These options were discussed with patient. [facility] [address] is patient's 1st choice. [facility] made aware and asked to go for ins auth. Original Note: Patient remains in ER. Physical therapy eval completed. Acute rehab is recommended. Clinical updates sent to [facility] and [facility]. [facility] is not able to offer a bed at this time. Continue to monitor for d/c needs.
[2023-06-07 08:35] LABS: COVID-19 Test Negative (Negative); IDNOW Serial# 08D9AD1C
[2023-06-07 08:44] VITALS: BP 154/82; PULSE 94; RESP 18; TEMP 36.5; O2SAT 95
--- NOTE | 2023-06-07 11:26 | MHC.CM.ED ---
Insurance auth has been obtained by [facility] [place]. Patient can leave at 130pm. Deb LEWIS booked. [facility] with chart. Patient, Jeanie KIRK and Susie THOMAS aware. Continue to monitor for d/c needs.
--- NOTE | 2023-06-07 13:45 | PC.NURSE ---
Multiple attempts to call report, transferred by Marine dickey RN able to take report
== END 2023-06-07 14:30 ==
PROVIDERS: Emergency Provider Emergency Medicine; PCP Internal Medicine
DX: R26.2 Difficulty in walking, not elsewhere classified (principal); E86.0 Dehydration; I10 Essential (primary) hypertension; Z86.73 Personal history of transient ischemic attack (TIA), and cerebral infarction without residual deficits; Z85.528 Personal history of other malignant neoplasm of kidney; Z90.5 Acquired absence of kidney; Z11.52 Encounter for screening for COVID-19
CPT/HCPCS: 36415; 73560; 80053; 85025; 87635; 93005; 96360; 96361; 97162; 99285; J7120

== ENCOUNTER → 2023-06-06 20:05 | Outpatient (BNV) | payer MEDICARE, SELFPAY | PROVIDERS: Emergency Provider Emergency Medicine; PCP Internal Medicine; Visit Provider Internal Medicine Cardiovascular Disease | DX: R94.31 Abnormal electrocardiogram [ECG] [EKG] (principal) | CPT/HCPCS: 93010 ==

== ENCOUNTER 2023-08-28 13:30 | Emergency (ER) | payer MEDICARE, SELFPAY ==
[2023-08-28] VITALS (10 sets, daily range): BP systolic 99–144; BP diastolic 65–80; PULSE 58–120; RESP 14–19; TEMP 36.8; O2SAT 94–96; BMI 18.1
--- NOTE | ~2023-08-28 | CT_ITS ---
EXAMINATION: CT CHEST, ABDOMEN AND PELVIS withoutCONTRAST CLINICAL INFORMATION: Fall.. History of renal cancer. COMPARISON: CT of chest abdomen pelvis May 03, 2021 TECHNIQUE: Multidetector volumetric CT imaging of the chest, abdomen and pelvis was obtained . Coronal, Sagittal reformatted images preformed at the CT scanner. [This CT examination was performed using dose optimization techniques as appropriate, variously including the following: *Automated exposure control *Adjustment of mA and/or kV according to patient size (this includes techniques or standardized protocols for targeted exams where dose is matched to indication/reason for exam; i.e. extremities or head) *Use of iterative reconstruction technique] DLP: 7.31+7.31+167.87+273.12 mGy-cm. FINDINGS: CT CHEST: Lungs: Mild Centrilobular and paraseptal emphysematous change of lungs. No acute airspace disease. No suspicious lung nodules. Mediastinum: There is no mediastinal mass or significant lymphadenopathy. Heart size is normal. No pericardial effusion. There are vascular calcifications of the wall of aorta without aneurysm. Coronary artery: Heavy coronary calcifications Pleura: There is no pleural effusion. No pleural mass or thickening. Axilla: No lymphadenopathy. CT ABDOMEN AND PELVIS: Liver, Gallbladder and Biliary Tree: The liver is normal in size, shape, and attenuation. No focal hepatic lesion or biliary ductal dilatation is present. The gallbladder is unremarkable with no evidence of radiopaque gallstones, gallbladder wall thickening, or obvious pericholecystic inflammatory changes. Pancreas: No acute change of the pancreas. No mass. No pancreatic duct dilatation. Spleen: Spleen normal in size and contour. No focal lesion. Adrenal Glands: Adrenal glands are normal in size. No focal mass. Kidneys and Ureters: Status post right nephrectomy. No evidence of recurrent tumor at the nephrectomy bed. Left kidney and left ureter are unremarkable. No calculus or hydronephrosis Bladder: Unremarkable. Gastrointestinal Tract: The small and large bowel are unremarkable. The appendix is nonvisualized. Mesentery: No focal inflammation. No free fluid. No free air. Abdominal Wall: No significant hernia is appreciated. Lymph Nodes: Normal. Vascular: Vascular calcifications throughout the abdomen and pelvis. Aneurysm of the distal aorta measuring 2.7 cm. This is stable since CAT scan May 03, 2021. This segment of the abdominal aorta measured 2.5 cm on CAT scan December 19, 2016. Based on published guidelines in J Am Jacob Radiol 2013; 10(10):789-794 and J Vasc Surg. 2018; 67:2-77, the recommendation for an abdominal aorta with diameter 2.6-2.9 cm is follow-up every 5 years if the aorta that meets the criteria for AAA (>1.5 x proximal normal segment; no f/u if < 1.5 x proximal normal segment; no f/u for aorta < 2.6 cm). Pelvic Viscera: Unremarkable. Osseous Structures: Unremarkable. CT/CT abdomen pelvis wo IV con IMPRESSION: 1. Status post right nephrectomy. No evidence of recurrent tumor or metastatic change of the chest, abdomen or pelvis. 2. Mild emphysematous change of lungs. 3. 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 This is stable since CAT scan May 03, 2021. This segment of the abdominal aorta measured 2.5 cm on CAT scan December 19, 2016. Based on published guidelines in J Am Jacob Radiol 2013; 10(10):789-794 and J Vasc Surg. 2018; 67:2-77, the recommendation for an abdominal aorta with diameter 2.6-2.9 cm is follow-up every 5 years if the aorta that meets the criteria for AAA (>1.5 x proximal normal segment; no f/u if < 1.5 x proximal normal segment; no f/u for aorta < 2.6 cm).
--- NOTE | ~2023-08-28 | CT_ITS ---
EXAMINATION: CT HEAD WITHOUT CONTRAST CT CERVICAL SPINE WITHOUT CONTRAST CLINICAL INFORMATION: Fall COMPARISON: None. TECHNIQUE: Imaging was performed from the skull base to vertex without intravenous administration of contrast. In addition, helical noncontrast CT imaging was acquired through the cervical spine and source images were reviewed along with axial reconstructions and sagittal and coronal MPRs. [This CT examination was performed using dose optimization techniques as appropriate, variously including the following: *Automated exposure control *Adjustment of mA and/or kV according to patient size (this includes techniques or standardized protocols for targeted exams where dose is matched to indication/reason for exam; i.e. extremities or head) *Use of iterative reconstruction technique] DLP: 10.25+794.13+263.37 mGy-cm FINDINGS: HEAD: No intracranial mass, hemorrhage, or midline shift is visualized. There is generalized global volume loss. There is moderate prominence of the ventricles and the sulci . There is mild hypodensity of the periventricular white matter due to chronic small vessel ischemic disease. There are vascular calcifications of the internal carotid arteries bilaterally. No extra-axial collections are identified. The paranasal sinuses and mastoid air cells are well aerated. CERVICAL SPINE: There is no evidence of acute cervical spine fracture. Vertebral bodies remain normal in height. Cervical vertebrae have normal alignment. There is multilevel degenerative spondylosis of the cervical spine with disc height narrowing and endplate spurs and facet joint arthrosis Vascular calcification of the carotid artery bifurcation bilaterally. Paraseptal and centrilobular emphysematous changes of the lung apices. CT/CT cervical spine wo IV con IMPRESSION: 1. No acute intracranial pathology. 2. No CT evidence of acute cervical spine fracture or traumatic subluxation
--- NOTE | 2023-08-28 14:05 | ECG_ITS ---
Test Reason : FALL Blood Pressure : / mmHG Vent. Rate : 086 BPM Atrial Rate : 086 BPM P-R Int : 182 ms QRS Dur : 074 ms QT Int : 348 ms P-R-T Axes : 068 040 067 degrees QTc Int : 416 ms Normal sinus rhythm Normal ECG When compared with ECG of 06-JUN-2023 22:25, No significant change was found Referred By: Rosmery Matamoros Electronically Signed By:Carlo Montilla
[2023-08-28 14:25] LABS: MANUAL DIFF FLAG NO
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
[2023-08-28 14:28] LABS: Basophils Percent Auto 0.7 % (0-2); Eosinophils Percent Auto 0.4 % (0-4); Hematocrit 41.8 % (42.0-52.0); Hemoglobin 14.4 g/dl (14.0-18.0); Imm Gran Abs Auto 0.01 X10*3/uL (0.00-0.03); Imm Gran Pct Auto 0.2 % (0.0-0.4); Lymphocytes Absolute Auto 0.8 X10*3/uL (1.2-4.9); Lymphocytes Percent Auto 14.1 % (20-40); Mean Corpuscular HGB Conc 34.4 g/dl (31.0-36.0); Mean Corpuscular Hemoglobin 30.8 pg (27.0-33.0); Mean Corpuscular Volume 89.3 fL (80.0-98.0); Mean Platelet Volume 9.5 fL (9.4-12.4); Monocytes Absolute Auto 0.5 X10*3/uL (0.1-1.2); Monocytes Percent Auto 8.1 % (2-11); Neutrophils Absolute Auto 4.2 x10*3/uL (2.0-8.3); Neutrophils Percent Auto 76.5 % (45-73); Platelet Count 273 X10*3/uL (160-400); Red Blood Count 4.68 X10*6/uL (4.60-5.80); Red Cell Distribution Width 14.2 % (11.0-16.0); White Blood Count 5.5 X10*3/uL (4.8-10.8)
--- NOTE | 2023-08-28 14:39 | PC.NURSE ---
pt taken to CT scan
[2023-08-28 14:40] LABS: Alanine Aminotransferase 14 U/L (0-40); Albumin Level 4.4 g/dL (3.5-5.0); Alkaline Phosphatase 58 U/L (39-117); Anion Gap 11 (12-20); Aspartate Amino Transferase 21 U/L (5-37); Bilirubin Direct 0.4 mg/dL (0.0-0.5); Bilirubin Total 1.2 mg/dL (0.0-1.0); Blood Urea Nitrogen 30 mg/dL (9-16); Calcium 10.3 mg/dL (8.4-10.2); Carbon Dioxide 27 mmol/L (22-29); Chloride 105 mmol/L (96-108); Creatinine Clr Calc Pharmacy 46.3; Estimated Glomerular Filt Rate 59; Glucose Random 102 mg/dL (60-115); Magnesium 1.8 mg/dL (1.6-2.6); Potassium 4.5 mmol/L (3.3-5.1); Sodium 138 mmol/L (135-145)
[2023-08-28 14:46] LABS: Troponin-I High Sensitivity 31.3 ng/L (<3.5-35.0)
[2023-08-28] MEDS: 0.9 % Sodium Chloride 1,000 ML 999 ML IV ×2 (14:51→16:45)
--- NOTE | 2023-08-28 16:19 | ED.FALL ---
HPI - Fall General Chief Complaint: Fall Stated Complaint: Fall Time Seen by Provider: 08/28/23 13:44 Source: patient, EMS, RN notes reviewed and old records reviewed Mode of arrival: EMS History of Present Illness ED Provider: Rosmery Matamoros PA-C HPI Narrative: 73-year-old male with a past medical history HTN, CVA on Eliquis, GERD, renal cell carcinoma, presenting to the ED via EMS complaining of right upper back pain s/p mechanical fall 2 days ago. Patient reports chronic dizziness/off balance causing falls over the past 2 years. States this caused his fall 2 days ago, states fell backwards down 2 steps onto a corner of safe. Denies head trauma or LOC. denies neck pain, chest pain/shortness of breath, lightheadedness/dizziness at present, abdominal pain, nausea/vomiting. Patient is poor historian MD complaint: fall Related Data Home Medications ?Medication ?Instructions ?Recorded ?Confirmed calcitonin (salmon) 200 200 unit intranasal DAILY 05/09/20 05/02/23 unit/actuation nasal spray Previous Rx's ?Medication ?Instructions ?Recorded amitriptyline 25 mg tablet 25 mg PO BEDTIME #90 tabs 11/22/22 cholecalciferol (vitamin D3) 25 25 mcg PO DAILY #90 caps 11/22/22 mcg (1,000 unit) capsule (Vitamin D3) diltiazem HCl 180 mg 180 mg PO DAILY #90 caps 11/22/22 capsule,extended release 24 hr ipratropium 20 mcg-albuterol 100 1 puff inhalation Q4H PRN 11/22/22 mcg/actuation mist for inhalation Shortness Of Breath #4 grams (Combivent Respimat) omeprazole 20 mg capsule,delayed 20 mg PO DAILY #90 caps 11/22/22 release rosuvastatin 20 mg tablet 20 mg PO DAILY #90 tabs 11/22/22 sennosides 8.6 mg capsule (senna) 17.2 mg (2 x 8.6 mg) PO BEDTIME 11/22/22 constipation 30 days #60 caps tamsulosin 0.4 mg capsule (Flomax) 0.4 mg PO DAILY #90 caps 11/22/22 apixaban 5 mg tablet (Eliquis) 5 mg PO BID #180 tabs 06/28/23 hydrochlorothiazide 25 mg tablet 25 mg PO DAILY #90 tabs 06/28/23 Allergies Allergy/AdvReac Type Severity Reaction Status Date / Time aspirin AdvReac Unknown upset Verified 08/28/23 14:00 stomach Review of Systems Review of Systems: Constitutional: No Fever, No Chills ENT/Mouth: No Ear Pain, No Nasal Congestion, No sore throat, No Rhinorrhea, No Swallowing Difficulty Cardiovascular: No Chest Pain, No SOB Respiratory: No Cough, No Sputum, No Wheezing Gastrointestinal: No Nausea, No Vomiting, No Diarrhea, No Constipation, No Abdominal pain Genitourinary: No Dysuria, No Urinary Frequency, No Hematuria, No Urinary Incontinence/retention, No Flank Pain Musculoskeletal: + joint pain, No Myalgias, No Joint Swelling Skin: No Skin Lesions, No rash Neuro: No Weakness, No Numbness, No Paresthesias, No head trauma, No LOC Yes all other systems are reviewed and are negative Constitutional: Constitutional: Reports as per HPI Neurologic: Denies Abnormal speech present [facility] Past Medical History Attestation statement: The following information was validated with the patient. Source: old records reviewed Medical History Essential hypertension CVA (cerebral vascular accident) Chronic idiopathic constipation GERD (gastroesophageal reflux disease) Renal cell carcinoma Surgical History Hx of colonoscopy History of esophagogastroduodenoscopy (EGD) Hx of kidney removal Family History Family History Father Hx of back injury Mother History of asthma Brother History of memory loss Social History Social History Household Members: Friend(s) Housing: Apartment Are you a primary care mgr to a significant other at home: No Do you presently have visiting nurse or other home services: No Alcohol intake: current Alcohol intake frequency: holidays/special occasions only Alcohol type: beer Patient Tobacco Use Status: Former Tobacco user Tobacco use type: Cigarette e-Cigarette/Vaping Use: Never Used Second Hand Smoke Exposure: No Advance Directives Date on File: 06/07/23 service: No Current occupational status: retired Cognitive needs: No Hearing needs: No Vision needs: Yes Physical Exam Vital Signs: Vital Signs: Last Vital Signs Temp 98.2 F 08/28/23 16:05 Pulse 73 08/28/23 18:48 Resp 14 08/28/23 18:48 BP 125/68 08/28/23 18:48 Pulse Ox 96 08/28/23 18:48 O2 Del Method Room Air 08/28/23 18:48 O2 Flow Rate 96 08/28/23 16:05 BMI result Body Mass Index 18.1 Const: General: cooperative, healthy appearing and no acute distress Orientation/consciousness: patient oriented x3 (but does not know President) Limitations: no limitations HEENT: Head: Yes normal to inspection and Yes atraumatic Ears: hearing grossly normal bilaterally General nose exam: Normal external nose present Face and sinus: Yes normal facial exam Eyes: General: appearance normal, both eyes and all related structures EOM: EOMs intact bilaterally Neck: Neck: Yes normal visual inspection and Yes no meningeal signs Chest: Chest palpation & inspection: normal inspection of the chest Resp: Effort & Inspection: normal respiratory effort and no respiratory distress Auscultation: clear to auscultation bilaterally Cardio: Rate: regular rate Heart sounds: S1 normal heart sound present and S2 normal heart sound present GI: Inspection: Yes normal to inspection Palpation (GI): Soft to palpation, nontender, no guarding and not rigid : General: Yes no CVA tenderness Back/Spine/Pelvis: Other: No midline cervical/thoracic/lumbar spinous tenderness/step-off or deformity. + right upper thoracic back reproducible tenderness/paraspinal tenderness. No flail chest/erythema or ecchymosis. No crepitus Back: no CVA tenderness Skin: Rashes: no rashes Wounds: no wounds Neuro: General: patient oriented x3 (but does not know President), tone normal, moves all extremities, no meningeal signs, no focal motor deficits and CN's II-XI intact bilaterally Cranial nerves: Yes CN's II-XII intact bilaterally Cognition (Neuro): normal cognition Speech: No Abnormal speech present Motor exam (neuro): 5/5 motor strength present throughout Extrem: General: Yes normal to inspection and Yes full ROM Course Course Course Narrative: -initial troponin 31.3 > will obtain [address] head/brain wo IV con/CT cervical spine wo IV con IMPRESSION: 1. No acute intracranial pathology. 2. No CT evidence of acute cervical spine fracture or traumatic subluxation -orthostatic vital signs positive with both heart rate and systolic blood pressure > will give IVF and repeat 1638--CT chest wo IV con/CT abdomen pelvis wo IV con IMPRESSION: 1. Status post right nephrectomy. No evidence of recurrent tumor or metastatic change of the chest, abdomen or pelvis. 2. Mild emphysematous change of lungs. 3. 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 This is stable since CAT scan May 03, 2021. This segment of the abdominal aorta measured 2.5 cm on CAT scan December 19, 2016. -1640--ED care transferred to [facility] pending repeat orthostatics and PT/case management if improved for multiple falls at home Reevaluation(s) Reevaluation #1: Advised by nursing staff that patient has bladder scan of 482 mL. Attempted multiple times to have patient urinate for urinalysis but patient was unable to do so successfully been despite being assisted to a standing position. Patient reports that from time to time he does have difficulty initiating his stream, and that sometimes it takes him a while to use the bathroom. Patient denies lower back pain, denies numbness or tingling to the lower extremities, denies saddle paresthesias. Rectal tone is normal. Suspect that this is less likely secondary to E cauda equina syndrome. Patient to be straight cathed urinalysis to be obtained, will assess for infection, and continue to monitor for any further episodes of retention which may require Martel catheter insertion Time: 19:59 Medications Administered Discontinued Medications Generic Name Dose Route Start Last Admin Trade Name Freq PRN Reason Stop Dose Admin Sodium Chloride 1,000 mls @ 999 mls/hr 08/28/23 14:45 08/28/23 16:05 Ns IV 08/28/23 15:45 Infused .Q1H1M JOCELINE Infusion Sodium Chloride 1,000 mls @ 999 mls/hr 08/28/23 16:45 08/28/23 18:09 Ns IV 08/28/23 17:45 Infused .Q1H1M JOCELINE Infusion Medical Decision Making Medical Decision Making [facility] Narrative: 73-year-old male with a past medical history HTN, CVA on Eliquis, GERD, renal cell carcinoma, presenting to the ED via EMS complaining of right upper back pain s/p mechanical fall 2 days ago. On exam vital signs stable, NAD, nontoxic appearing, physical exam as noted above. No focal neuro deficits. No midline spinous tenderness throughout. Abdomen soft/nontender. Concern for metabolic/infectious etiologies vs chronic off balance/dizziness vs fractures vs contusion vs intrathoracic or intra-abdominal bleeding. Low suspicion for CVA/ICH Plan: EKG, labs, UA, CTs, re-evaluate, +/-PT/case management Please refer to course for remaining clinical decision making, interpretation of labs/imaging results, and discussions with consultants and/or family members. Differential Diagnosis Differential Diagnoses: The differential diagnosis associated with the presentation includes As above Admission/Observation Consideration of admission/observation: Escalation of care including admission/observation considered Lab Data MDM Lab Attestation statement: I reviewed the patient's lab results. 08/28/23 14:21 08/28/23 14:21 Labs: Lab Results 08/28/23 08/28/23 Range/Units 14:21 17:35 WBC 5.5 (4.8-10.8) X10*3/uL RBC 4.68 (4.60-5.80) X10*6/uL Hgb 14.4 (14.0-18.0) g/dl Hct 41.8 L (42.0-52.0) % MCV 89.3 (80.0-98.0) fL MCH 30.8 (27.0-33.0) pg MCHC 34.4 (31.0-36.0) g/dl RDW 14.2 (11.0-16.0) % Plt Count 273 (160-400) X10*3/uL MPV 9.5 (9.4-12.4) fL Immature Gran % (Auto) 0.2 (0.0-0.4) % Neut % (Auto) 76.5 H (45-73) % Lymph % (Auto) 14.1 L (20-40) % [place] % (Auto) 8.1 (2-11) % Eos % (Auto) 0.4 (0-4) % Baso % (Auto) 0.7 (0-2) % Lymph # (Auto) 0.8 L (1.2-4.9) X10*3/uL [place] # (Auto) 0.5 (0.1-1.2) X10*3/uL Eos # (Auto) 0.0 (0.0-0.4) X10*3/uL Baso # (Auto) 0.0 (0.0-0.2) X10*3/uL Abs Immat Gran (auto) 0.01 (0.00-0.03) X10*3/uL Absolute Neuts (auto) 4.2 (2.0-8.3) x10*3/uL Absolute Nucleated RBC 0.000 (0.0-0.012) X10*3/uL Nucleated RBC % (auto) 0.0 (0.0-0.2) /100WBC Sodium 138 (135-145) mmol/L Potassium 4.5 (3.3-5.1) mmol/L Chloride 105 (96-108) mmol/L Carbon Dioxide 27 (22-29) mmol/L Anion Gap 11 L (12-20) BUN 30 H (9-16) mg/dL Creatinine 1.22 (0.5-1.4) mg/dL Estim Creat Clear Calc 46.3 Estimated GFR 59 Random Glucose 102 (60-115) mg/dL Calcium 10.3 H D (8.4-10.2) mg/dL Magnesium 1.8 (1.6-2.6) mg/dL Total Bilirubin 1.2 H (0.0-1.0) mg/dL Direct Bilirubin 0.4 (0.0-0.5) mg/dL AST 21 (5-37) U/L ALT 14 (0-40) U/L Alkaline Phosphatase 58 (39-117) U/L Troponin I High Sens 31.3 29.2 (<3.5-35.0) ng/L Total Protein 8.0 (6.5-8.0) g/dL Albumin 4.4 (3.5-5.0) g/dL Independent Interpretation I performed an independent interpretation of an: EKG and CT Scan Radiology Impression Discussion of test interpretation with radiology: I have reviewed the radiologist's reading. Independent Historian Clinical information obtained from an independent historian. History obtained from or confirmed by: EMS External Record Review External record reviewed: Inpatient record, Office record, Outpatient record, Prior outpatient labs, Prior outpatient radiology, Primary care record and Outside ED record Tests considered The following testing was considered but not selected: As above Social Determinants Patient?s care significantly limited by Social Determinants of Health including: Inadequate housing and Problems related to primary support group Discharge Plan Discharge Clinical Impression: Back pain, Multiple falls Patient Disposition: Still a Patient Prescriptions: No Action Eliquis 5 mg tablet 5 mg PO BID Qty: 180 1RF hydrochlorothiazide 25 mg tablet 25 mg PO DAILY Qty: 90 0RF calcitonin (salmon) 200 unit/actuation spray,non-aerosol 200 unit intranasal DAILY senna 8.6 mg capsule 17.2 mg PO BEDTIME 30 Days Qty: 60 3RF amitriptyline 25 mg tablet 25 mg PO BEDTIME Qty: 90 1RF cholecalciferol (vitamin D3) [Vitamin D3] 25 mcg (1,000 unit) capsule 25 mcg PO DAILY Qty: 90 1RF diltiazem HCl 180 mg capsule,extended release 24hr 180 mg PO DAILY Qty: 90 1RF Combivent Respimat 20-100 mcg/actuation mist 1 puff inhalation Q4H PRN (Reason: Shortness Of Breath) Qty: 4 0RF omeprazole 20 mg capsule,delayed release(DR/EC) 20 mg PO DAILY Qty: 90 1RF rosuvastatin 20 mg tablet 20 mg PO DAILY Qty: 90 1RF tamsulosin [Flomax] 0.4 mg capsule 0.4 mg PO DAILY Qty: 90 1RF Print Language: Mongolian
[2023-08-28 18:01] LABS: Troponin-I High Sensitivity 29.2 ng/L (<3.5-35.0)
--- NOTE | 2023-08-28 18:34 | PC.NURSE ---
Patient unable to urinate, BS for 333, provider aware. Patient stood up and attempted to urinate, needs significant assistance to stand, still unable to pee, provider aware will wait to see if patient can urinate on his own before straight cath.
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
--- NOTE | 2023-08-28 20:50 | PC.NURSE ---
Patient BS for 482, provider aware, straight cath x 1 ordered, output of 600 dowd yellow urine, UA sent.
[2023-08-28 20:57] LABS: Appearance Urine Clear; Color Urine Yellow; Glucose Urine UA Negative (Negative); Leukocyte Esterase Urine Negative (Negative); Nitrite Urine Negative (Negative); PH 5.5 (5.0-9.0); Urine Blood Negative (Negative); Urine Ketones 15 mg/dL (Negative); Urine Protein Negative (Neg-Trace)
--- NOTE | 2023-08-28 21:15 | PC.NURSE ---
RN to RN report given to palmira RN in overflow, patient to be brought over to overflow.
--- NOTE | 2023-08-28 22:37 | MHC.EDTECH ---
Patient comes to overflow alert and oriented . skin is dry pink and intact no breakdown noted. patient uses a urinal as needed. reports multiple falls at home 2 assist oob until Pt evaluates. he was Repositioned to the left side @ 10:39
--- NOTE | 2023-08-28 22:40 | PC.NURSE ---
ARRIVES FROM ED IN NAD, ENDORSING UPPER BACK PAIN, SLIGHTLY RELIEVED NOW THAT HE IS IN A HSOPITAL BED. NO APPARENT SKIN BREAKDOWN. ALERT, ORIENTED TO SITUATION, SELF AND PLACE. ABLE TO MAKE NEEDS KNOWN. VS WNL.
[2023-08-29 04:44] VITALS: BP 102/61; PULSE 57; RESP 16; TEMP 36.8; O2SAT 97
--- NOTE | 2023-08-29 04:44 | MHC.EDTECH ---
Patient awake ,use urinal 400 ml out put ,vitals taken and [facility] given ,Patient comfortable watching television .
[2023-08-29 07:46] VITALS: BP 102/61; PULSE 57; O2SAT 97
--- NOTE | 2023-08-29 08:38 | MHC.CM.ED ---
Addendum entered by Bia Wood 08/29/23 11:40: [facility], [facility], [facility], [facility], [facility] and [facility] are able to offer a bed. These options were discussed with patient. [facility] is 1st choice. [facility] is in the process of obtaining insurance auth. Original Note: Patient remains in ER overflow. Physical therapy eval completed. Short term rehab recommended. Clinical updates sent to all facilities still reviewing. Continue to monitor for d/c needs.
[2023-08-29 09:26] LABS: COVID-19 Test Negative (Negative); IDNOW Serial# 152EDE1D
--- NOTE | 2023-08-29 10:51 | PHA.MEDREC ---
Pharmacy Consult ? Medication Reconciliation Pharmacy has completed the medication reconciliation. Talked to patient to confirm meds. Patient states they get all meds through [facility]. Patient is not the best historian, but was able to confirm meds when provided name/indication. Patient is not very adherent to medications. Per patient, they have been waiting 2 months for new refills for their medications. As such, they have been taking meds they have found around the house. Those of such have been confirmed in the med rec and [facility] has confirmed that a majority of these meds have not been filled since Mar 2023.
--- NOTE | 2023-08-29 13:17 | MHC.CM.ED ---
Insurance auth has been obtained by [facility]. Deb LUCIANOS booked for 330pm. Patient, Kim RN and Carol Ann Rodriguez aware. Continue to monitor for d/c needs.
[2023-08-29 15:58] VITALS: BP 134/74; PULSE 100; RESP 18; TEMP 36.6; O2SAT 94
[2023-08-29 15:59] VITALS: BP 134/74; PULSE 100; RESP 18; TEMP 36.6; O2SAT 94
--- NOTE | 2023-08-29 16:01 | PC.NURSE ---
Attempted to give report to [facility] twice and no one picked up, there is not a 0 option.
--- NOTE | 2023-08-29 16:03 | PC.NURSE ---
Med rec was done by this conventional underwriter and pharmacy but patient did not receive any of his mediations prior to leaving for [facility] rehab
== END 2023-08-29 16:04 | disposition skilled nursing facility (03) ==
PROVIDERS: Physician Assistant; Emergency Provider Internal Medicine; PCP Internal Medicine
DX: S29.9XXA Unspecified injury of thorax, initial encounter (principal); M54.50 Low back pain, unspecified; R26.81 Unsteadiness on feet; R11.0 Nausea; R51.9 Headache, unspecified; M54.2 Cervicalgia; R07.89 Other chest pain; R10.2 Pelvic and perineal pain; W01.10XA Fall on same level from slipping, tripping and stumbling with subsequent striking against unspecified object, initial encounter; Y93.9 Activity, unspecified; Y92.9 Unspecified place or not applicable; Y99.8 Other external cause status; Z11.52 Encounter for screening for COVID-19; Z79.899 Other long term (current) drug therapy; Z79.01 Long term (current) use of anticoagulants; Z86.73 Personal history of transient ischemic attack (TIA), and cerebral infarction without residual deficits; Z87.891 Personal history of nicotine dependence; Z91.81 History of falling
CPT/HCPCS: 36415; 51701; 70450; 71250; 72125; 74176; 80048; 80076; 81003; 83735; 84484; 85025; 87635; 93005; 96360; 96361; 97162; 99285

== ENCOUNTER → 2023-08-28 14:05 | Outpatient (BNV) | payer MEDICARE, SELFPAY | PROVIDERS: Emergency Provider Internal Medicine; PCP Internal Medicine; Visit Provider Internal Medicine Cardiovascular Disease | DX: R55 Syncope and collapse (principal) | CPT/HCPCS: 93010 ==

== ENCOUNTER 2024-01-20 16:35 | Emergency (ER) | payer MEDICARE, SELFPAY ==
--- NOTE | ~2024-01-20 | XR_ITS ---
EXAMINATION: XR CHEST CLINICAL INFORMATION: Chest pain COMPARISON: 03/31/2013 TECHNIQUE: Frontal view of the chest was obtained. FINDINGS: Large lung volumes. Mild flattening of the hemidiaphragms likely reflects COPD. Otherwise, clear lungs. No effusion or pneumothorax. Cardiomediastinal silhouette is wtihin normal limits. XR/XR chest 1V IMPRESSION: Large lung volumes likely reflects COPD. Electronically signed by: Omayra Edwards MD 01/20/2024 06:25 PM ELISSA CLAROS
--- NOTE | 2024-01-20 16:40 | ECG_ITS ---
Test Reason : chest pain Blood Pressure : / mmHG Vent. Rate : 073 BPM Atrial Rate : 073 BPM P-R Int : 200 ms QRS Dur : 080 ms QT Int : 364 ms P-R-T Axes : 073 062 076 degrees QTc Int : 401 ms Normal sinus rhythm Normal ECG When compared with ECG of 28-AUG-2023 14:18, No significant change was found Referred By: Barbara Tomlinson Electronically Signed By:Carlo Montilla
[2024-01-20 16:45] VITALS: BP 165/70; PULSE 90; O2SAT 95
[2024-01-20 16:50] VITALS: BP 114/70; PULSE 84; RESP 16; TEMP 36.9; O2SAT 95; BMI 22.4
--- NOTE | 2024-01-20 17:14 | ED.CHESTPAIN ---
HPI - Chest Pain General Chief Complaint: Chest Pain Stated Complaint: CHEST PRESSURE X 2 HRS Time Seen by Provider: 01/20/24 16:43 Source: patient and EMS Mode of arrival: EMS Limitations: no limitations History of Present Illness HPI narrative: Patient is a 73-year-old male presents emergency department for evaluation of chest pain. He reports onset approximately 13:00 today while he was sitting in his room. He reports it was substernal in location described as a pressure, nonradiating without associated diaphoresis, nausea, vomiting. It is mild initially, he went down the [place] in his wheelchair to go play binSANDOW and he noticed while playing bingo his symptoms progressively worsened. EMS administered aspirin 324 mg and 2 sublingual nitro. By the time he arrived to the emergency department his pain had resolved. He denies any pain at this time. He does state that he was sick her the past 2 days with a cold, coughing and congestion. Reports symptoms improved today. Denies associated fevers or chills. Related Data Home Medications ?Medication ?Instructions ?Recorded ?Confirmed amitriptyline 10 mg tablet 10 mg PO BEDTIME 08/29/23 08/29/23 fluticasone propionate 50 1 spray intranasal DAILY 08/29/23 08/29/23 mcg/actuation nasal spray,suspension (Flonase Allergy Relief) omeprazole 20 mg capsule,delayed 20 mg PO DAILY@0630 08/29/23 08/29/23 release tamsulosin 0.4 mg capsule (Flomax) 0.4 mg PO DAILY PRN urination 08/29/23 08/29/23 problems Previous Rx's ?Medication ?Instructions ?Recorded cholecalciferol (vitamin D3) 25 25 mcg PO DAILY #90 caps 11/22/22 mcg (1,000 unit) capsule (Vitamin D3) diltiazem HCl 180 mg 180 mg PO DAILY #90 caps 11/22/22 capsule,extended release 24 hr ipratropium 20 mcg-albuterol 100 1 puff inhalation Q4H PRN 11/22/22 mcg/actuation mist for inhalation Shortness Of Breath #4 grams (Combivent Respimat) rosuvastatin 20 mg tablet 20 mg PO DAILY #90 tabs 11/22/22 apixaban 5 mg tablet (Eliquis) 5 mg PO BID #180 tabs 06/28/23 hydrochlorothiazide 25 mg tablet 25 mg PO DAILY #90 tabs 06/28/23 Allergies Allergy/AdvReac Type Severity Reaction Status Date / Time aspirin AdvReac Unknown upset Verified 01/20/24 16:56 stomach Review of Systems Review of Systems: Yes all other systems are reviewed and are negative [facility] Past Medical History Attestation statement: The following information was validated with the patient. Source: old records reviewed Medical History Essential hypertension CVA (cerebral vascular accident) Chronic idiopathic constipation GERD (gastroesophageal reflux disease) Renal cell carcinoma Surgical History Hx of colonoscopy History of esophagogastroduodenoscopy (EGD) Hx of kidney removal Family History Family History Father Hx of back injury Mother History of asthma Brother History of memory loss Social History Social History Household Members: Friend(s) Housing: Apartment Are you a primary care navigator to a significant other at home: No Do you presently have visiting nurse or other home services: No Alcohol intake: current Alcohol intake frequency: holidays/special occasions only Alcohol type: beer Patient Tobacco Use Status: Former Tobacco user Tobacco use type: Cigarette Smoked in Last 30 Days: No e-Cigarette/Vaping Use: Never Used Second Hand Smoke Exposure: No Use of substances other than those prescribed or required for medical reasons: No Advance Directives: Yes Advance Directives on File: Yes Advance Directives Date on File: 06/07/23 Do you have a plan to hurt others: No Plan service: No Current occupational status: retired Cognitive needs: No Hearing needs: No Vision needs: Yes Physical Exam Vital Signs: Vital Signs: Last Vital Signs Temp 98.4 F 01/20/24 16:50 Pulse 67 01/20/24 18:52 Resp 18 01/20/24 18:52 BP 117/63 01/20/24 18:52 Pulse Ox 98 01/20/24 18:52 O2 Del Method Room Air 01/20/24 18:52 BMI result Body Mass Index 22.4 Appearance: Alert.?Oriented to person, place and time. No acute distress.?Normal affect. Eyes: Pupils equal, round and reactive to light.? ENT: Pharynx normal.?? Neck: Normal inspection.? Neck supple.?? CVS: Heart sounds normal. Normal heart rate and rhythm.? Pulses normal.?? Respiratory: No respiratory distress.? Lung sounds clear to auscultation bilaterally?? Abdomen: Soft and non-tender. Normoactive bowel sounds. No pulsatile mass.?? Skin: Skin warm and dry.? Normal skin color.? ?? Extremities: No lower extremity edema.? No calf ttp? Neuro: Moves all extremities spontaneously. Sensation intact bilaterally. CN II-XII intact. No focal neuro deficits. Ambulates with normal steady gait. Course Reevaluation(s) Reevaluation #1: EKG without signs of acute ischemia or STEMI, initial troponin below detectable limits will obtain delta troponin. Chest x-ray without evidence of acute findings sepsis pneumonia pneumothorax. CBC is without leukocytosis, has a mild normocytic anemia that does not meet transfusion criteria, no thrombocytopenia. No electrolyte derangement. No LISA. BNP within normal range. LFTs within normal range. Viral serologies are negative.. Reevaluation #2: Delta troponin is flat, I have a low suspicion for ACS. I reviewed this case with my attending Dr. St, feel that he is stable for discharge. He has had no further episodes of chest pain. Is well-appearing. Recommend outpatient follow-up with primary care provider. Discussed worrisome signs and symptoms that would warrant re-evaluation in the emergency department. Medical Decision Making Medical Decision Making MDM Narrative: Patient is a 73-year-old male with past medical history of hypertension, CVA on Eliquis, GERD, renal cell carcinoma with prior nephrectomy who presents to the emergency department for evaluation with complaint of chest pain. No evidence of volume overload or shock on exam. Low suspicion for acute PE (Wells low risk), pneumothorax, thoracic aortic dissection, cardiac effusion / tamponade. No recent trauma or injury, no tracheal deviation, unlikely tension pneumothorax. He has had recent URI symptoms which suggests viral illness, possible pneumonia, costochondritis. No abdominal tenderness upon palpation, negative Choudhury sign, unlikely acute cholecystitis, choledocholithiasis, no fever or jaundice to suggest acute cholangitis, may possibly be biliary colic secondary to cholelithiasis. Denies associated acid reflux, no tenderness upon palpation over the epigastrium or left upper quadrant to suggest gastritis, no recent hematemesis history less likely to suggest PUD. Denies excessive alcohol consumption, history of diabetes, lower suspicion acute pancreatitis. Overall, ACS is being considered given higher risk features, HEART score: 5, pain resolved after 2 sublingual nitro and aspirin pre-hospital. Will obtain CBC to evaluate for leukocytosis/ anemia, CMP and lipase to evaluate for abnormal electrolytes /abnormal renal function/ abnormal hepatic/biliary function, EKG and troponin to evaluate for ischemia/ACS. Chest x-ray to evaluate for consolidation/ infiltrate/ mass/ pulmonary congestion, ASA, pain control and reassessment Differential Diagnosis Differential Diagnoses: The differential diagnosis associated with the presentation includes (See narrative above) Admission/Observation Consideration of admission/observation: Escalation of care including admission/observation considered (See narrative above and course narrative for further detail) Lab Data MDM Lab Attestation statement: I reviewed the patient's lab results. 01/20/24 17:43 01/20/24 17:43 Labs: Lab Results 01/20/24 01/20/24 Range/Units 17:43 20:20 WBC 5.4 (4.8-10.8) X10*3/uL RBC 3.88 L (4.60-5.80) X10*6/uL Hgb 12.2 L (14.0-18.0) g/dl Hct 35.2 L (42.0-52.0) % MCV 90.7 (80.0-98.0) fL MCH 31.4 (27.0-33.0) pg MCHC 34.7 (31.0-36.0) g/dl RDW 14.4 (11.0-16.0) % Plt Count 223 (160-400) X10*3/uL MPV 9.0 L (9.4-12.4) fL Immature Gran % (Auto) 0.2 (0.0-0.4) % Neut % (Auto) 56.3 (45-73) % Lymph % (Auto) 27.1 (20-40) % [place] % (Auto) 12.7 H (2-11) % Eos % (Auto) 3.0 (0-4) % Baso % (Auto) 0.7 (0-2) % Lymph # (Auto) 1.5 (1.2-4.9) X10*3/uL [place] # (Auto) 0.7 (0.1-1.2) X10*3/uL Eos # (Auto) 0.2 (0.0-0.4) X10*3/uL Baso # (Auto) 0.0 (0.0-0.2) X10*3/uL Abs Immat Gran (auto) 0.01 (0.00-0.03) X10*3/uL Absolute Neuts (auto) 3.1 (2.0-8.3) x10*3/uL Absolute Nucleated RBC 0.000 (0.0-0.012) X10*3/uL Nucleated RBC % (auto) 0.0 (0.0-0.2) /100WBC Sodium 135 (135-145) mmol/L Potassium 4.2 (3.3-5.1) mmol/L Chloride 102 (96-108) mmol/L Carbon Dioxide 24 (22-29) mmol/L Anion Gap 13 (12-20) BUN 26 H (9-16) mg/dL Creatinine 1.04 (0.5-1.4) mg/dL Estim Creat Clear Calc 56.3 Estimated GFR > 60 Random Glucose 95 (60-115) mg/dL Calcium 9.5 D (8.4-10.2) mg/dL Magnesium 1.6 (1.6-2.6) mg/dL Total Bilirubin 0.5 (0.0-1.0) mg/dL AST 24 (5-37) U/L ALT 15 (0-40) U/L Alkaline Phosphatase 55 (39-117) U/L Troponin I High Sens < 2.7 D < 2.7 (<3.5-35.0) ng/L B-Natriuretic Peptide < 10 (<100) pg/mL Total Protein 6.9 (6.5-8.0) g/dL Albumin 3.9 (3.5-5.0) g/dL Influenza Type A (PCR) NEGATIVE (Negative) Influenza Type B (PCR) NEGATIVE (Negative) RSV RNA Qual (PCR) NEGATIVE (Negative) SARS-CoV-2 RNA (RT-PCR) NEGATIVE (Negative) Independent Interpretation I performed an independent interpretation of an: EKG and Plain X-Ray (No consolidation or infiltrate) Interpretation: Rate: 73 Rhythm:? Normal sinus rhythm Normal P waves.? Normal JAZLYN.?? Normal QRS complex.?? ST T wave :??No ST elevation, no ST depression. No T-wave inversion. qTC: 401 prior studies:? August of 2023 The study has been interpreted contemporaneously by me. Radiology Impression Discussion of test interpretation with radiology: I have reviewed the radiologist's reading. Radiologist Impression: XR/XR chest 1V IMPRESSION: Large lung volumes likely reflects COPD. Discharge Plan Discharge Clinical Impression: Atypical chest pain Patient Disposition: Home, Self-Care Instructions: Chest Pain (ED) Additional Instructions: EKG today was normal, cardiac enzymes; troponin were negative x2. Chest x-ray is without evidence of pneumonia. Labs are otherwise unremarkable. Testing for COVID, flu, RSV are negative. Follow-up with primary care doctor. Return to emergency department any new or worsening symptoms or concerns. Prescriptions: No Action Eliquis 5 mg tablet 5 mg PO BID Qty: 180 1RF hydrochlorothiazide 25 mg tablet 25 mg PO DAILY Qty: 90 0RF amitriptyline 10 mg tablet 10 mg PO BEDTIME fluticasone propionate [Flonase Allergy Relief] 50 mcg/actuation [place],Suspension 1 spray INTRANASAL DAILY Rx Instructions: administer into each nostril tamsulosin [Flomax] 0.4 mg capsule 0.4 mg PO DAILY PRN (Reason: urination problems) omeprazole 20 mg capsule,delayed release(DR/EC) 20 mg PO DAILY@0630 cholecalciferol (vitamin D3) [Vitamin D3] 25 mcg (1,000 unit) capsule 25 mcg PO DAILY Qty: 90 1RF diltiazem HCl 180 mg capsule,extended release 24hr 180 mg PO DAILY Qty: 90 1RF Combivent Respimat 20-100 mcg/actuation mist 1 puff inhalation Q4H PRN (Reason: Shortness Of Breath) Qty: 4 0RF rosuvastatin 20 mg tablet 20 mg PO DAILY Qty: 90 1RF Referrals: Physician,Unknown J [Primary Care Provider] - Print Language: Citizen Of [place]
[2024-01-20 17:46] LABS: MANUAL DIFF FLAG NO
[2024-01-20 17:53] LABS: Basophils Percent Auto 0.7 % (0-2); Eosinophils Absolute Auto 0.2 X10*3/uL (0.0-0.4); Hematocrit 35.2 % (42.0-52.0); Hemoglobin 12.2 g/dl (14.0-18.0); Imm Gran Abs Auto 0.01 X10*3/uL (0.00-0.03); Imm Gran Pct Auto 0.2 % (0.0-0.4); Lymphocytes Absolute Auto 1.5 X10*3/uL (1.2-4.9); Lymphocytes Percent Auto 27.1 % (20-40); Mean Corpuscular HGB Conc 34.7 g/dl (31.0-36.0); Mean Corpuscular Hemoglobin 31.4 pg (27.0-33.0); Mean Corpuscular Volume 90.7 fL (80.0-98.0); Monocytes Absolute Auto 0.7 X10*3/uL (0.1-1.2); Monocytes Percent Auto 12.7 % (2-11); Neutrophils Absolute Auto 3.1 x10*3/uL (2.0-8.3); Neutrophils Percent Auto 56.3 % (45-73); Platelet Count 223 X10*3/uL (160-400); Red Blood Count 3.88 X10*6/uL (4.60-5.80); Red Cell Distribution Width 14.4 % (11.0-16.0); White Blood Count 5.4 X10*3/uL (4.8-10.8)
[2024-01-20 18:05] LABS: Alanine Aminotransferase 15 U/L (0-40); Albumin Level 3.9 g/dL (3.5-5.0); Alkaline Phosphatase 55 U/L (39-117); Anion Gap 13 (12-20); Aspartate Amino Transferase 24 U/L (5-37); Bilirubin Total 0.5 mg/dL (0.0-1.0); Blood Urea Nitrogen 26 mg/dL (9-16); Calcium 9.5 mg/dL (8.4-10.2); Carbon Dioxide 24 mmol/L (22-29); Chloride 102 mmol/L (96-108); Creatinine Clr Calc Pharmacy 56.3; Estimated Glomerular Filt Rate > 60; Glucose Random 95 mg/dL (60-115); Magnesium 1.6 mg/dL (1.6-2.6); Potassium 4.2 mmol/L (3.3-5.1); Sodium 135 mmol/L (135-145); Total Protein 6.9 g/dL (6.5-8.0)
--- NOTE | 2024-01-20 18:07 | MHC.EDTECH ---
Patient inc therefore patient changed and repositioned
[2024-01-20 18:16] LABS: Troponin-I High Sensitivity < 2.7 ng/L (<3.5-35.0)
[2024-01-20 18:45] LABS: B Type Natriuretic Peptide < 10 pg/mL (<100)
[2024-01-20 18:46] LABS: Influenza A PCR NEGATIVE (Negative); Influenza B PCR NEGATIVE (Negative); Resp Syncy Virus RNA Qual PCR NEGATIVE (Negative); SARS COV2 PCR INHOUSE NEGATIVE (Negative)
[2024-01-20 18:52] VITALS: BP 117/63; PULSE 67; RESP 18; O2SAT 98
[2024-01-20 21:09] LABS: Troponin-I High Sensitivity < 2.7 ng/L (<3.5-35.0)
[2024-01-20 22:42] VITALS: BP 135/66; PULSE 74; RESP 16; O2SAT 96
[2024-01-21 00:40] VITALS: BP 128/71; PULSE 80; RESP 16; TEMP 36.9; O2SAT 92
== END 2024-01-21 00:40 | disposition home or self-care (01) ==
PROVIDERS: Nurse Practitioner Family; Physician Assistant Medical; Emergency Provider Emergency Medicine
DX: R07.89 Other chest pain (principal); R06.02 Shortness of breath; Z79.899 Other long term (current) drug therapy; Z87.891 Personal history of nicotine dependence; Z86.73 Personal history of transient ischemic attack (TIA), and cerebral infarction without residual deficits; Z79.01 Long term (current) use of anticoagulants
CPT/HCPCS: 0241U; 36415; 71045; 80053; 83735; 83880; 84484; 85025; 93005; 99283; 99285

== ENCOUNTER → 2024-01-20 16:40 | Outpatient (BNV) | payer MEDICARE, SELFPAY | PROVIDERS: Emergency Provider Emergency Medicine; Visit Provider Internal Medicine Cardiovascular Disease | DX: R07.9 Chest pain, unspecified (principal) | CPT/HCPCS: 93010 ==